=== PATIENT | female | born 1930 | race Caucasian/White ===

== ENCOUNTER → 2017-04-27 | Outpatient (CLI) | payer MEDICARE ==
--- NOTE | 2017-04-27 14:32 | USB ---
Reason for exam: additional evaluation requested from abnormal screening. History: Patient is postmenopausal, has history of breast cancer at age 72, and had previous chest radiation therapy at age 71. Family history of breast cancer in maternal aunt. Radiation therapy of the right breast, 2001. Excisional biopsy of the right breast. Lumpectomy of the right breast. Took estrogen for 7 years beginning at age 60. US Breast Workup Limited RT Right breast ultrasound demonstrates no cystic or solid lesion seen. These results were verbally communicated with the patient and result sheet given to the patient on 04/27/17. ASSESSMENT: Benign, BI-RAD 2 RECOMMENDATION: Return to routine screening mammogram schedule for both breasts. Manage patient on a clinical basis.
--- NOTE | 2017-05-03 10:05 | MM ---
Reason for exam: screening (asymptomatic). Last mammogram was performed 2 years and 10 months ago. History: Patient is postmenopausal, has history of breast cancer at age 72, and had previous chest radiation therapy at age 71. Family history of breast cancer in maternal aunt. Radiation therapy of the right breast, 2001. Excisional biopsy of the right breast. Lumpectomy of the right breast. Took estrogen for 7 years beginning at age 60. Physical Findings: Nurse Summary: 2 x 2cm area in the right breast at 1 o'clock with thickening, undetermined borders (nurse ts). MG 3D Screening Mammo W/Cad Bilateral CC and MLO view(s) were taken. Prior study comparison: June 24, 2014, bilateral MG diagnostic mammo w CAD [facility]. May 11, 2013, CAD bilateral diagnostic mammogram. There are scattered fibroglandular densities. No significant new findings when compared with previous films. These results were verbally communicated with the patient and result sheet given to the patient on 04/27/17. ASSESSMENT: Incomplete: need additional imaging evaluation, BI-RAD 0 RECOMMENDATION: Ultrasound of the right breast. [facility] will attempt to contact patient to return for ultrasound.
== END | disposition home or self-care (01) ==
LOC: RADMAMWWP 13:08
PROVIDERS: ATTEND Internal Medicine
DX: Z12.31 Encounter for screening mammogram for malignant neoplasm of breast (principal); R92.8 Other abnormal and inconclusive findings on diagnostic imaging of breast; R92.2 Inconclusive mammogram; Z80.3 Family history of malignant neoplasm of breast
CPT/HCPCS: 77063; 76642; G0202